=== PATIENT | female | born 1960 | race Caucasian/White ===

== ENCOUNTER 2017-02-20 07:39 | Day surgery (SDC) | payer OTHER ==
[~2017-02-20] VITALS: Ht 162.6 cm; Wt 159.6 kg
[~2017-02-20 07:39] MED LIST: ALPR2TAB3 PO; CYCL5TAB PO; ESCI10TA PO; GABA400C5 PO; HUMA100I3 SQ; HYDR25TA5 PO; LEVEMIR SQ; LISI-515 PO; METF500T PO; MONT10TA4 PO; PERC5TAB12 PO
[2017-02-20] MEDS ORDERED: IOHEXOL 350 MG/ML 50 ML BTL (for Cath Lab) OTHER ONE (07:40)
[2017-02-20] MEDS ORDERED: NS 1000P @30 MLS/HR (KVO) IV SCH (08:00)
[2017-02-20 08:40] LABS: AUTOMATED NEUTROPHIL # 4.9 TH/MM3 (1.8-7.7); BASOPHIL % 0.4 % (0.0-2.0); EOSINOPHIL # 0.2 TH/MM3 (0-0.4); EOSINOPHIL % 2.1 % (0.0-4.0); HEMATOCRIT 34.7 % (35.0-46.0); HEMOGLOBIN 11.6 GM/DL (11.6-15.3); LYMPH % 29.9 % (9.0-44.0); LYMPHOCYTE # 2.4 TH/MM3 (1.0-4.8); MEAN CELL VOLUME 87.2 FL (80.0-100.0); MEAN CORPUSCULAR HEMOGLOBIN 29.1 PG (27.0-34.0); MEAN CORPUSCULAR HGB CONC 33.4 % (32.0-36.0); MEAN PLATELET VOLUME 7.9 FL (7.0-11.0); MONO % 6.3 % (0.0-8.0); MONOCYTE # 0.5 TH/MM3 (0-0.9); NEUT % 61.3 % (16.0-70.0); PLATELET COUNT 464 TH/MM3 (150-450); RED BLOOD COUNT 3.98 MIL/MM3 (4.00-5.30); RED CELL DISTRIBUTION WIDTH 14.1 % (11.6-17.2)
[2017-02-20] MEDS ORDERED: ALBUAER3 INH (08:45)
[2017-02-20] MEDS ORDERED: FURO40TA PO (08:45)
[2017-02-20] MEDS ORDERED: HYDR-3288 PO (08:45)
[2017-02-20] MEDS ORDERED: CYCL10TA PO (08:45)
[2017-02-20] MEDS ORDERED: AMIT25TA9 PO (08:45)
[2017-02-20] MEDS ORDERED: TIOT12.9 INH (08:45)
[2017-02-20] MEDS ORDERED: FERR325T18 PO (08:45)
[2017-02-20] MEDS ORDERED: FENO145T2 PO (08:45)
[2017-02-20] MEDS ORDERED: LOSA25TA PO (08:45)
[2017-02-20] MEDS ORDERED: SACC1CAP3 PO (08:45)
[2017-02-20] MEDS ORDERED: POTA10CA PO (08:45)
[2017-02-20] MEDS ORDERED: LOVA20TA PO (08:45)
[2017-02-20] MEDS ORDERED: BENZ1CAP54 PO (08:45)
[2017-02-20] MEDS ORDERED: PIOG15TA5 PO (08:45)
[2017-02-20 08:49] VITALS: BP 172/94; PULSE 121; RESP 20; TEMP 98.5; O2SAT 97
[2017-02-20 08:50] LABS: PROTHROMBIN TIME - PATIENT 10.1 SEC (9.8-11.6)
[2017-02-20 08:53] LABS: BICARBONATE 31.4 MEQ/L (21.0-32.0); CALCIUM 9.4 MG/DL (8.5-10.1); CREATININE 1.55 MG/DL (0.50-1.00)
[2017-02-20] MEDS ORDERED: HEPARIN-NS/PF INJ 1,000 ML ONE (09:10)
[2017-02-20] MEDS ORDERED: diphenhydrAMINE HCL 50 MG/ML VIAL ONE (09:16)
[2017-02-20] MEDS ORDERED: VERAPAMIL HCL 5 MG/2 ML VIAL ONE (09:17)
[2017-02-20] MEDS ORDERED: HEPARIN SODIUM - IV 10,000 UNITS/10 ML VIAL ONE (09:18)
[2017-02-20] MEDS ORDERED: NITROGLYCERIN INJ 5 ML ONE (09:19)
--- NOTE | 2017-02-20 09:40 | CATHPROC ---
[employer] HIS Report Study Information Study Number Admission Scheduled Start Study Start [id number] Feb 20 2017 7:39AM 02/20/2017 Feb 20 2017 8:10AM [place] [facility] Cardiac Catheterization Admit Source Facility Department Other [facility] Brass Instrument Repair Technician Physician and Clinical Staff Initial MD Schultz, Maria Luisa Stripping Machine Operator Joseph RN, Chan Recorder Drew Kirby,RT(R) Scrub Kvng, Carmen,ENTRY LEVEL ASSISTANT MANAGER TECH2 Procedures Performed Procedure Location (Site) Vessel Name Coronary Angiograms LCA Left Coronary Coronary Angiograms RCA Right Coronary Equipment Time Clerical Administrative Assistant Description Size Mfg Part Number Used/Scraped TRANSDUCER, TRUWAVE [id number] 09:21 HAIDER BROWN * Used W/STOCKCOCK *[id number] 09:21 Laguo PACK, CCL CUSTOM * Used *[id number] 09:21 Laguo SUPPORT, ARTERIAL ADULT 38828 *[id number] Used [id number] 09:21 [employer] PACER PEN, SKIN DUAL W/ RULER * Used *[id number] 09:26 MEDTRONIC JR 4.0 DXTERITY CATHETER FR 5 [id number] Used BAND, RADIAL COMPRESSION TR [id number] 09:31 [employer] 29CM Used LARGE 29 *[id number] BAND, RADIAL COMPRESSION TR [id number] 09:31 [employer] 24CM Used SHORT 24 *[id number] 09:21 [employer] WIRE, EXCHANGE 260CM 3MMJ 260CM Used *[id number] 09:21 NAMIC MANIFOLD, 4 PORT * Used *[id number] 09:21 NAMIC TUBING, HIGH PRESSURE 20" 20" Used *[id number] 09:21 [employer] OMNIPAQUE, 350 MG, 150ML 150ML [id number] Used [id number] 09:21 [employer] BL[employer]ET,WARM AIR CCL * Used *[id number] CATHETER, FR5 OPTITORQUE [id number] 09:21 [employer] FR 5 Used RADIAL TIG 4.0 *[id number] SHEATH, FR6 TRANSRADIAL RM*[id number] 09:21 [employer] FR 6 Used SLENDER 10CM *[id number] History: Allergies Allergy Reaction Aspirin History: Risk Factors Family History of Hypertension Dyslipidemia Previous MT Previous Heart Failure Premature CAD Yes Yes Yes No No Prior Valve Prior PCI Prior CABG Surgery No No No Cerebrovascular Peripheral Artery Chronic Lung On Dialysis Diabetes Diabetes Therapy Disease Disease Disease No No No Yes Yes Insulin History: Stress Tests Stress or Imaging Studies Performed Yes Standard Exercise Stress Test No Stress Echo No Stress Test SPECT Stress Test SPECT Result Stress Test SPECT Ischemia Risk/Extent Yes Positive Intermediate Stress Test CMR No Cardiac CTA Coronary Calcium Score No No History: Other Current Smoker Packs a Day Years Used Pack Years Yes 30 30 Labs Hgb (g/dl) Hct (%) WBC (l/cumm) Platelets (thousands) 11.60-17.00 35.00-51.00 4.00-11.00 150.00-450.00 11.6 34.7 8 464 Glucose (mg/dl) BUN (mg/dl) Creatinine (mg/dl) BUN:Creatinine (1:x) 74.00-106.00 7.00-18.00 0.50-1.30 10.00-20.00 317 28 1.5 18.7 Na (meq/l) K (meq/l) 136.00-145.00 3.50-5.10 134 3.7 INR (PTT:PT) 0.90-1.10 1 CPK-MB (ng/ML) 0.50-3.60 Not Drawn Medication Medication Total Dose (Bolus/Oral) Medication Total Dosage/Unit 1% XYLOCAINE 5 mL BENADRYL 50 mg RADIAL COCKTAIL 5 mL (Bolus) Medications (Bolus/Oral) Medication Time Given Dosage/Unit Administered By Reason BENADRYL 02/20/2017 9:17:45 AM 50 mg Chan Ruiz RN 50 mg BENADRYL given in lab by Chan Ruiz RN in Left Antecubital via Peripheral IV. Ordered by Maria Luisa Samson. 1% XYLOCAINE 02/20/2017 9:19:03 AM 5 mL Maria Luisa Schultz 5 mL 1% XYLOCAINE given in lab by Maria Luisa Schultz in Right Radial via Subcutaneous. Ordered by Maria Luisa Schultz. RADIAL COCKTAIL 02/20/2017 9:21:03 AM 5 mL (Bolus) Maria Luisa Schultz 5 mL (Bolus) RADIAL COCKTAIL given in lab by Maria Luisa Schultz via Radial. Using [Solution Name]. Ordered by Maria Luisa Schultz. 2mg NTG, 2.5mg verapamil, 2,000 units Heparin. Medication (Drip) Medication Time Given Dosage/Unit Concentration/Unit Diluent (ml) Soluti on IV Solutions 02/20/2017 9:15:46 AM 0 mL (IV) NaCl .9 Patient arrived on IV Solutions given by Maria Luisa Schultz in Left Antecubital via Peripheral IV. Pump/Dr ip Flow = 20 ml/hr using NaCl .9. Ordered by Maria Luisa Schultz. Initial Case Assessment Cardiovascular HR Rhythm NIBP Chest Pain 106 SR 160/87 0 Edema Present Skin color Skin Mild Normal Warm Dry Circulatory - Right Pulses Dorsalis Pedis Femoral 1 2 Scale (0,1,2,3,4,d) Circulatory - Left Pulses Dorsalis Pedis Femoral 1 2 Scale (0,1,2,3,4,d) Neurological State Oriented to time-place- Alert Moves all extremities person Respiration - General Respiration Rate SpO2 (%) O2 (lpm) (B/min) 14 96 0 Final Case Assessment Cardiovascular HR Rhythm NIBP Chest Pain 100 sr 144/95 0 Edema Present Skin color Skin Mild Normal Warm Dry Circulatory - Right Pulses Dorsalis Pedis Femoral 1 2 Scale (0,1,2,3,4,d) Scale (0,1,2,3,4,d) Neurological State Oriented to time-place- Alert Moves all extremities person Respiration - General Respiration Rate SpO2 (%) O2 (lpm) (B/min) 18 96 0 Chronological Log Time Study Chronological Log 9:01:02 Patient arrived via Bed. 9:01:03 Patient Name, D.O.B, / Armband Verified By R.N. 9:01:06 Consent signed by the physician and the patient and verified by the Brass Instrument Repair Technician staff. 9:01:08 Pre-op and post- op instructions given; patient acknowledges understanding of instructions. Vitals capture started with the following parameters, Patient=Adult, Interval=5 min, Initial Pre dyoof=021 mmHg, 9:06:09 Deflation Rate=5 mmHg, Cuff placed on Left Arm 9:07:44 LOGF=280/89 mmhg, SpO2=98.0 % 9:11:50 YD=874 bpm, UFPC=268/87 mmhg, SpO2=95.0 %, Resp=13 B/min, Nuñez=2 9:14:05 Presedation assessment performed by Brass Instrument Repair Technician RN. 9:14:10 Patient has been NPO for More than 6Hrs. 9:14:16 Skin Breakdown- scab on bilateral lower legs 9:14:48 Patient Warmer Placed on the Table. 9:14:52 A # 20 IV was noted in the Antecubital (left). Grade = 0 Patient arrived on IV Solutions given by Maria Luisa Schultz in Left Antecubital via Peripheral IV. Pu mp/Drip Flow = 20 ml/hr 9:15:46 using NaCl .9. Ordered by Maria Luisa Schultz. 9:16:32 History and physical on the chart or being dictated. Assessment: Initial Case, PW=432 BPM, Rhythm=SR, HYGP=355/87 mmhg, Chest Pain=0, Edema=Mild, Col or=Normal, Skin = Warm, Dry Right Pulses: Juan Miguel Ped=1, Femoral=2 9:16:36 Left Pulses: Juan Miguel Ped=1, Femoral=2 Neurological: State=Alert, Ox3, WEEMS Respiration: Resp=14 B/min, SpO2=96 %, O2=0 lpm 9:16:49 AJ=554 bpm, IGDE=293/92 mmhg, SpO2=96.0 %, Resp=14 B/min, Nuñez=2 9:17:38 Reference ECG taken 9:17:45 50 mg BENADRYL given in lab by Chan Ruiz RN in Left Antecubital via Peripheral IV. Ordere d by Maria Luisa Schultz. 9:17:47 Right Radial and groin(s) prepped with 2% chlorhexidine, and draped after a 3 min. waiting t constantin. Time Out. Correct patient, correct procedure, correct physician, power injector not loaded with contrast with surgical 9:18:05 team present. Time Out Concurred by MD and individual staff in procedure. Not loaded at this deangelo e. 9:18:21 Pressure channel 1 zeroed. 9:19:01 Case Start 9:19:03 5 mL 1% XYLOCAINE given in lab by Maria Luisa Schultz in Right Radial via Subcutaneous. Ordered by Maria Luisa Schultz. 9:19:44 Access site was Right Radial Artery. 9:20:47 A sheath was advanced into the Fem Art (right) using the ~TECHNIQUE~ technique. A SHEATH, FR6 TRANSRADIAL SLENDER 10CM FR 6 was advanced into the Radial (right) using the Benny montes 9:21:02 technique. 5 mL (Bolus) RADIAL COCKTAIL given in lab by Maria Luisa Schultz via Radial. Using [Solution Name]. Or dered by Antoine, 9:21:03 Maria Luisa. 2mg NTG, 2.5mg verapamil, 2,000 units Heparin. A CATHETER, FR5 OPTITORQUE RADIAL TIG 4.0 FR 5 was advanced over a wire. OMNIPAQUE, 350 MG, 150M L 150ML 9:21:11 was used for injections. 9:21:44 SY=063 bpm, DQPS=347/71 mmhg, SpO2=93.0 %, Resp=16 B/min, Nuñez=2 9:21:49 The LCA was injected and visualized at various angles. OMNIPAQUE, 350 MG, 150ML 150ML used. Recorded Pressure: Ao, MZ=706, Condition=Condition 1 9:22:47 (Aorta) Ao 118/87/100 Recorded Pressure: LV, XZ=042, Condition=Condition 1 9:22:56 (Left Ventricle) LV 117/23/53 Recorded Pressure: LV, Ao, MV=104, Condition=Condition 1 9:22:58 (Left Ventricle) LV 110/19/22, (Aorta) Ao 114/71/92 After removing the current catheter a JR 4.0 DXTERITY CATHETER FR 5 was advanced over a WIRE, EXCHANGE 260CM 9:25:15 3MMJ 260CM. 9:26:42 The RCA was injected and visualized at various angles. OMNIPAQUE, 350 MG, 150ML 150ML use d. 9:27:14 DG=032 bpm, RHAO=070/95 mmhg, SpO2=94.0 %, Resp=16 B/min 9:28:05 Catheter was removed OTW. Assessment: Final Case, BB=964 BPM, Rhythm=sr, JVWO=766/95 mmhg, Chest Pain=0, Edema=Mild, Col or=Normal, Skin = Warm, Dry 9:29:55 Right Pulses: Juan Miguel Ped=1, Femoral=2 Neurological: State=Alert, Ox3, WEEMS Respiration: Resp=18 B/min, SpO2=96 %, O2=0 lpm Radial Compression Device Used. 12 mLs of air placed in BAND, RADIAL COMPRESSION TR LARGE 29 2 9CM. Affected 9:30:54 hand 91 % O2 saturation. 9:31:12 Case End 9:31:14 No case complications noted. 9:31:17 Cine recording checked. 9:31:21 Bedside Report will be given. 9:32:08 Vitals capture stopped. 9:32:09 MD=417 bpm, ZCYF=624/98 mmhg, SpO2=91.0 %, Resp=15 B/min, Nuñez=2 9:36:43 Contrast Scanned 9:36:48 Patient moved to stretcher End Study - Contrast Media Used In Study Contrast Total Opened (mL) Total Used (mL) Total Wasted (mL) Omnipaque 30 30 0 End Study - Maximum Contrast Load Max Contrast Load (mL) 532.0 End Study - Radiation Exposure Fluoro Time (minutes) 3.6 End Study - Patient Disposition Complications Transferred To No Outpatient Bed
[2017-02-20] MEDS ORDERED: SODIUM CHLOR 0.9% 1000 ML INJ 400 ML IV ONE (09:45)
--- NOTE | 2017-02-20 14:43 | MA ---
cc: NASH SCHULTZ M.D. DATE OF PROCEDURE 02/20/2017 INDICATIONS FOR PROCEDURE A 56-year-old female with history of chest pain, possible ischemia. PROCEDURE Left heart catheterization, angiogram. PROCEDURE NOTE After obtaining informed consent, the patient in a fasting state was brought to the lab support technician. The right radial area was sterilized and draped with sterile drapes. 1% Xylocaine was used to locally anesthetize the area. A 6-Macedonian sheath was used to access the right radial artery. A Ellington catheter was used to intubate the left main and JR4 to intubate the right coronary artery. Both of them were 5-Macedonian. No left ventriculogram was performed and systolic pressure was, however, not performed. Crossing the valve there was no pressure gradient across the aortic valve. FINDINGS The left ventricular end-diastolic pressure is 12. Aortic pressure 140/80. CORONARY ANGIOGRAM The left main coronary artery is very short, large. Bifurcates into the LAD and left circumflex artery. The left main has no significant disease. The left anterior descending coronary artery and its branches have no significant disease, somewhat tortuous. The left circumflex coronary artery is a medium-sized vessel with no significant disease. The right coronary artery is dominant, with no significant disease. Medical management to continue. The patient was sent back to back to her room in stable condition, no complications. POSTOPERATIVE DIAGNOSIS No significant coronary artery disease. Nash Schultz MD TK/SSB /9:27 AM /12:17 PM
--- NOTE | 2017-02-21 11:14 | EKG ---
Date Performed: 02/20/2017 Time Performed: 08:41:52 PTAGE: 56 years EKG: Sinus tachycardia Inferior infarct - age undetermined Possible anterior infarct - age undet ermined Low QRS voltages in precordial leads Abnormal ECG NO PREVIOUS TRACING DOCTOR: Juan Carlos Martinez Interpretating Date/Time 02/21/2017 11:13:01
== END 2017-02-20 12:23 | disposition home or self-care (01) ==
LOC: HDOC 07:39 → HDIC 07:40 → HDOC 12:23
PROVIDERS: ATTEND Internal Medicine Cardiovascular Disease
DX: R07.9 Chest pain, unspecified (principal); R06.02 Shortness of breath; I87.2 Venous insufficiency (chronic) (peripheral); R60.9 Edema, unspecified; I10 Essential (primary) hypertension; E78.5 Hyperlipidemia, unspecified; J44.9 Chronic obstructive pulmonary disease, unspecified; I73.9 Peripheral vascular disease, unspecified; Z01.810 Encounter for preprocedural cardiovascular examination; Z01.818 Encounter for other preprocedural examination
CPT/HCPCS: 80048; 85025; 85610; 85730; 93005; 93458; 99152; C1769; C1893; J1200; J1644; Q9967